=== PATIENT | female | born 1945 | race Caucasian/White ===

== ENCOUNTER → 2018-12-20 | Day surgery (SDC) | payer BC, MEDICARE ==
[~2018-12-20] MED LIST: Buffered Lidocaine 1% SYRIN* 1 ML/SYRINGE INTRADERM ONE; Dexamethasone IV* 4 MG/ML 1 ML (4 MG) IV SLOW PU ONE; Dexamethasone IV* 4 MG/ML 1 ML (4 MG) ONE; DiMENhydriNATE IV* 50 MG/ML VIAL IV PUSH PRN; Famotidine IV* 10 MG/ML 2 ML (20 mg) IV ONE; Famotidine IV* 10 MG/ML 2 ML (20 mg) ONE; Ketorolac INJ* 30 MG/ML 1 ML VIAL ONE; Lactated Ringers 1000 ML Bag* 1,000 ML IV SCH; Lidocaine 2% PF * 5 ML VIAL ONE; Naloxone* 0.4 MG/ML 1 ML VIAL IV PRN; Ondansetron INJ* 2 MG/ML VIAL ONE; Propofol* 10 MG/ML 20 ML BTL ONE; fentaNYL* 50 MCG/ML 2 ML VIAL (100 MCG VIAL) IV PRN; fentaNYL* 50 MCG/ML 2 ML VIAL (100 MCG VIAL) ONE
[2018-12-20 09:37] LABS: ABS Basophils 0.1 10^3/ul (0-0.2); ABS Eosinophils 0.2 10^3/ul (0-0.6); ABS Lymphocytes 1.5 10^3/ul (1.0-4.8); ABS Monocytes 0.5 10^3/ul (0-0.8); ABS Neutrophils 3.9 10^3/ul (1.5-7.7); Eosinophil % 3.9 %; Hematocrit 43 % (35-47); Hemoglobin 14.8 g/dL (12.0-16.0); Lymphocyte % 24.8 %; Mean Corpuscular HGB Conc 34 g/dL (31-36); Mean Corpuscular Hemoglobin 30 pg (27-31); Mean Corpuscular Volume 89 fL (80-97); Mean Platelet Volume 8.1 fL (7.4-10.4); Platelet Count 231 10^3/uL (150-450); Red Blood Count 4.88 10^6 /uL (3.70-4.87); Red Cell Distribution Width 12 % (10-15); White Blood Count 6.2 10^3/uL (3.5-10.8)
[2018-12-20 11:55] VITALS: BP 140/56
--- NOTE | 2018-12-20 15:07 | OP ---
OPERATIVE REPORT: DATE OF OPERATION: 12/20/18 DATE OF : 41 SURGEON: Pamela Ugalde MD SHIRT MAKER: None. ANESTHESIA: General endotracheal. PRE-OP DIAGNOSES: Postmenopausal bleeding, endometrial polyp on ultrasound. POST-OP DIAGNOSES: Postmenopausal bleeding, endometrial polyp on ultrasound. OPERATIVE PROCEDURE: Dilation and curettage, hysteroscopy, polypectomy. ESTIMATED BLOOD LOSS: Minimal. FLUIDS: Crystalloid. FINDINGS: Endometrial polyp on the right lower uterine segment, posterior vagina with strictures and difficulty identifying the cervix and cervical os. COMPLICATIONS: None. COUNTS: All correct. DESCRIPTION OF PROCEDURE: After informed consent was signed, the patient was taken to the operating room where she was given general anesthesia that was found to be adequate. She was prepped and drape d in the dorsal lithotomy position in the [facility]. A time-out was performed. Two speculums w ere then placed into the vagina to expose the posterior vagina. There was difficulty with identifyin g exactly where the cervix was as there were strictures. Eventually, the external os was found and s lowly dilated until the MyoSure camera could be inserted. The camera was inserted and entrance to th e uterine cavity was confirmed. Both ostia were visualized and a polyp was noted in the right lower uterine segment. MyoSure Lite was inserted and used to remove the polyp until it was flush with the endometrium. The MyoSure device was removed and the tenaculum was removed. Minimal bleeding was note d and stopped with pressure. The speculums were then removed. The patient was awakened from anesthe angela, placed back into the supine position, and taken to the recovery room in stable condition. [id number]/[facility] #: [id number]
== END | disposition home or self-care (01) ==
LOC: OR 08:21
PROVIDERS: ATTEND Obstetrics & Gynecology
DX: N95.0 Postmenopausal bleeding (principal); N84.0 Polyp of corpus uteri; K21.9 Gastro-esophageal reflux disease without esophagitis
CPT/HCPCS: 36415; 85025; 86850; 86900; 86901; 88305; J1100; J1885; J2405; J2704; J3010

== ENCOUNTER 2019-01-12 11:49 | Emergency (ER) | payer MEDICARE ==
--- OUTSIDE RECORDS SUMMARY | 2019-01-12 11:56 | XMS REPORT | Continuity of Care Document ---
:1945 External Reference #:[id number] Author Name Pamela Ugalde MD Address [address] [place] [address] Problems Description No Information Available Social History Type Date Description Comments Sex Unknown Tobacco Use Start: Unknown Never Smoked Cigarettes ETOH Use Wine and beer a couple times a week Recreational Drug Use Denies Drug Use Tobacco Use Start: Unknown Patient has never smoked Smoking Status Reviewed: 11/21/18 Patient has never smoked Exercise Type/Frequency Exercises regularly Seat Belt/Car Seat Always uses seat belt Allergies, Adverse Reactions, Alerts Active Allergies Reaction Severity Comments Date Doxycycline 10/23/2018 Medications Active Medications SIG Qnty Indications Ordering Provider Date Calcium + D 1 by mouth every Unknown day [id number] Chewtabs Prilosec OTC 1 by mouth every Unknown 20mg Tablets day DR Chelated Magnesium Unknown 100mg Tablets Vitamin D 1 by mouth every Unknown 1000Unit Tablets day Vitamin B12 Unknown 500mcg Tablets Medications Administered in Office Medication SIG Qnty Indications Ordering Provider Date PT SCRN Tbco Id as Non User Pamela Ugalde MD 11/21/2018 Injection PT SCRN Tbco Id as Non User Pamela Ugalde MD 10/23/2018 Injection Immunizations Description No Information Available Vital Signs Date Vital Result Comment 11/21/2018 9:45am BP Systolic 134 mmHg BP Diastolic 76 mmHg Height 62.50 inches 5'2.50" Weight 157.00 lb BMI (Body Mass Index) 28.3 kg/m2 Last Menstrual Period 7213961 2 Parity 2 10/23/2018 10:55am BP Systolic 140 mmHg BP Diastolic 80 mmHg Weight 158.00 lb Last Menstrual Period [id number] 2 Parity 2 Results Description No Information Available Procedures Date Code Description Status 11/21/2018 57994 Echography Transvaginal Completed 03/19/2014 [id number] Colonoscopy Completed 03/19/2012 [id number] Mammogram Completed Medical Devices Description No Information Available Encounters Type Date Location Provider Dx Diagnosis Office Visit 11/21/2018 [facility] Pamela Ugalde, N95.0 Postmenopausal bleeding 10:00a Office Visit 10/23/2018 [facility] Pamela Ugalde, N39.3 Stress incontinence 11:00a (female) (male) N39.41 Urge incontinence N95.0 Postmenopausal bleeding N81.11 Cystocele, midline Assessments Date Code Description Provider 11/21/2018 N95.0 Postmenopausal bleeding Pamela Ugalde MD 11/21/2018 N95.0 Postmenopausal bleeding Ultrasounds 10/23/2018 N39.3 Stress incontinence (female) (male) Pamela Ugalde MD 10/23/2018 N39.41 Urge incontinence Pamela Ugalde MD 10/23/2018 N95.0 Postmenopausal bleeding Pamela Ugalde MD 10/23/2018 N81.11 Cystocele, midline Pamela Ugalde MD Plan of Treatment 11/21/2018 - Pamela Ugalde MDN95.0 Postmenopausal bleedingComments:We discussed the importance of tissue sampling to confirm benign tissue. Pt agrees to D&C hysteroscopy with polypectomy. Reviewed procedure, recovery and risks. Consents signed and questions answered. Functional Status Description No Information Available Mental Status Description No Information Available Referrals Description No Information Available
--- OUTSIDE RECORDS SUMMARY | 2019-01-12 11:56 | XMS REPORT | Summary of Care ---
:1945 Author Organization [facility] Address [address] [place] [address] Care Team Providers Name Role Phone Chaz Hart MD Primary Care Provider Colin Fernandez MD Unavailable Reason for Visit Reason Comments Other pt presents for pre op clearance. Encounter Details Date Type Department Care Team Description 12/10/2018 Office Visit [facility] [place] Chaz Hart MD Pre-op evaluation (Primary Dx); Practice [address] Endometrial polyp; [address] [place] [address] Neuropathy; [place] [address] B12 deficiency; [phone] Vitamin D deficiency; Need for vaccination Allergies Active Allergy Reactions Severity Noted Date Comments Doxycycline Rash High 02/23/2014 documented as of this encounter (statuses as of 12/10/2018) Medications Medication Sig Dispensed Refills Start Date End Date Status Omeprazole Magnesium Take 20.6 0 Active (PRILOSEC OTC PO) mg by mouth DAILY. Calcium Take 1 Tab 0 Active Carb-Cholecalciferol by mouth (CALCIUM 600/VITAMIN DAILY. D3) 600-800 MG-UNIT Oral Tab Cholecalciferol Take 1 Cap 0 Active (VITAMIN D3) 1000 by mouth UNITS Oral Cap DAILY. Magnesium 250 MG Oral Take by 0 Active Tab mouth DAILY. Cyanocobalamin (B-12) Take by 0 12/10/2018 Discontinued 5000 MCG Oral Cap mouth DAILY. documented as of this encounter (statuses as of 12/10/2018) Active Problems Problem Noted Date Osteoporosis 09/13/2016 History of basal cell carcinoma 09/11/2016 documented as of this encounter (statuses as of 12/10/2018) Immunizations Name Administration Dates Next Due Influenza (IM) Preservative Free 12/19/2013 Influenza Vaccine 65 Yrs + 12/10/2018 Influenza Vaccine High Dose 04/02/2017, 03/29/2016, 02/26/2015 PNEUMOCOCCAL POLYSACCHARIDE VACCINE 03/29/2016 Pneumococcal Conjugate(13 Valent) 02/23/2014 documented as of this encounter Social History Tobacco Use Types Packs/Day Years Used Date Never Smoker Smokeless Tobacco: Never Used Alcohol Use Drinks/Week oz/Week Comments Yes occasional Social Isolation Answer Date Recorded In a typical week, how many times do you More than three times a week 2018 talk on the phone with family, friends, or neighbors? How often do you get together with friends More than three times a week 05/29 or relatives? How often do you attend mu-ism or More than 4 times per year 05/29/2018 holiness services? Do you belong to any clubs or Yes 05/29/2018 organizations such as mu-ism groups, unions, fraternal or athletic groups, or school groups? How often do you attend meetings of the More than 4 times per year 05/29/2018 clubs or organizations you belong to? Are you now , , , 05/29/2018 , never or living with a partner? Physical Activity Answer Date Recorded On average, how many days per week do you engage in moderate to 7 days 2018 strenuous exercise (like walking fast, running, jogging, dancing, swimming, biking, or other activities that cause a light or heavy sweat)? On average, how many minutes do you engage in exercise at this 40 min 2018 level? Stress Answer Date Recorded Do you feel stress - tense, restless, nervous, or anxious, Not at all 2018 or unable to sleep at night because your mind is troubled all the time - these days? Financial Resource Strain Answer Date Recorded How hard is it for you to pay for the very basics like Not hard at all 2018 food, housing, medical care, and heating? Intimate Partner Violence Answer Date Recorded Within the last year, have you been afraid of your partner or No 05/29/2018 ex-partner? Within the last year, have you been humiliated or emotionally No 05/29/2018 abused in other ways by your partner or ex-partner? Within the last year, have you been kicked, hit, slapped, or No 05/29/2018 otherwise physically hurt by your partner or ex-partner? Within the last year, have you been raped or forced to have any No 05/29/2018 kind of sexual activity by your partner or ex-partner? Food Insecurity Answer Date Recorded Within the past 12 months, you worried that your food would Never true 2018 run out before you got money to buy more. Within the past 12 months, the food you bought just didn't Never true 2018 last and you didn't have money to get more. Transportation Needs Answer Date Recorded In the past 12 months, has lack of transportation kept you from No 05/29/2018 medical appointments or from getting medications? In the past 12 months, has lack of transportation kept you from No 05/29/2018 meetings, work, or getting things needed for daily living? Sex Assigned at Date Recorded Not on file Job Start Date Occupation Industry Not on file Not on file Not on file Travel History Travel Start Travel End No recent travel history available. documented as of this encounter Last Filed Vital Signs Vital Sign Reading Time Taken Comments Blood Pressure 118/70 12/10/2018 2:04 PM EDT Pulse 75 12/10/2018 2:04 PM EDT Temperature - - Respiratory Rate - - Oxygen Saturation 97% 12/10/2018 2:04 PM EDT Inhaled Oxygen Concentration - - Weight 71.3 kg (157 lb 3.2 oz) 12/10/2018 2:04 PM EDT Height 160 cm (5' 3") 12/10/2018 2:04 PM EDT Body Mass Index 27.85 12/10/2018 2:04 PM EDT documented in this encounter Progress Notes Chaz Hart MD - 12/10/2018 2:00 PM EDT PATIENT: Keisha Novak : 1945 DATE OF SERVICE: 12/10/2018 Subjective SUBJECTIVE: Keisha Novak is a 73-y.o. female who presents to the office today for a preoperative consultationat the request of Dr Ugalde, who will perform a D and C on 12/20/18. Patient complains of urinary incontinence, uses pessary. Saw MOTION PICTURE PROJECTIONIST APPRENTICE for a check up and ultrasound showed endometrial polyp . She could not do a hysteroscopy in the office due to stenotic os. Plan is todo a D and C to remove the polyp: . Patient denies cardiac symptoms: chest pain, dyspnea, palpitations, near- syncope, fatigue, orthopnea, paroxysmal nocturnal dyspnea, claudication. Past history of pulmonary embolism/deep vein thrombosis: no. There is a history of bleeding complications: no Past history of anesthetic problem: no. Exercise capacity: Can you walk 2 blocks on level ground, or carry 2 bags of groceries up 2 flights of stairs? Yes Count the number of risk factors in the revised Lan cardiac risk index. ( RCRI): 0 High risk procedure: eg vascular surgery, any open intraperitoneal or intrathoracic 0 History of ischemic heart disease (history of ME or a positive exercise test , current complaint of chest pain considered to be secondary to myocardial ischemia, use of nitrate therapy, or ECG with pathological Q waves; do not count prior coronary revascularization procedure unless one of the other criteria for ischemic heart disease is present) 0 Hx of CHF, either systolic or diastolic 0 History of cerebrovascular disease (TIA or Stroke) 0 Diabetes mellitus requiring treatment with insulin 0 Preoperative serum creatinine >2.0 mg/dl The risk of cardiac , nonfatal myocardial infarction, and nonfatal cardiac arrest according to the number of above risk predictors is estimated to be: No risk factors - 0.4 percent (95% CI: 0.1 - 0.8) Screening for sleep apnea: Stop-Bang 1 Snoring: Do you snore loudly (louder than talking or heard through closed doors)? Tired: Do you often feel tired, fatigued, or sleepy during the day? Observed: Has anyone observed you stop breathing during your sleep? Pressure: Do you have or are you being treated for high blood pressure? BMI: >35 kg/m2? 1 Age: >50? Neck circumference: >40 cm? Gender: Male? "Low risk" for KEESHA: <3 questions "yes" Screening for Alzheimer's 1. During the past 12 months, have you experienced confusion or memory loss that is happening more often or is getting worse? No 2. During the past 7 days, did you need help with others to perform everyday activities such as eating, getting dressed, grooming, bathing, walking, or using the toilet? No 3. During the past 7 days, did you need help from others to take care of things such as laundry and housekeeping, banking, shopping, using the telephone, food preparation, transportation, or taking your own medications? No I Past Medical History: Diagnosis Date Basal cell carcinoma BCC (basal cell carcinoma of skin) right jawline Benign familial tremor old records Colon polyp 2014 5 years Diverticulosis 03/04/09 5 years Encounter for Zostavax administration 4..08 Esophageal stricture 2000 s/p dilation Gastric polyp old records and 2014 benign Gastric ulcer not recall if H Pylori ( not in old records) Hemorrhoid Osteopenia old records 11.1.12 2.3 Osteopenia 2014 frax 13 and 3.3 if mom broke hip 21 and 8.0 Osteoporosis 2019 Other and unspecified hyperlipidemia old records [id number] 2013 Retina disorder Vitamin D deficiency old records Family History Problem Relation Age of Onset Osteoporosis Mother had RA Colon Cancer Maternal Grandmother Stroke Maternal Grandfather 80 Cancer Father 85 Prostate CA Alzheimer's Disease Father Respiratory Father COPD Cancer Sister Leukemia No Known Problems Daughter No Known Problems Son Current Outpatient Medications Medication Sig Calcium Carb-Cholecalciferol (CALCIUM 600/VITAMIN D3) 600-800 MG-UNIT Oral Tab Take 1 Tab by mouth DAILY. Cholecalciferol (VITAMIN D3) 1000 UNITS Oral Cap Take 1 Cap by mouth DAILY. Magnesium 250 MG Oral Tab Take by mouth DAILY. Omeprazole Magnesium (PRILOSEC OTC PO) Take 20.6 mg by mouth DAILY. No current facility-administered medications for this visit. 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 Social Needs Financial resource strain: Not hard at all Food insecurity: Worry: Never true Inability: Never true Transportation needs: Medical: No Non-medical: No Tobacco Use Smoking status: Never Smoker Smokeless tobacco: Never Used Substance and Sexual Activity Alcohol use: Yes Comment: occasional Drug use: No Sexual activity: Not Currently Lifestyle Physical activity: Days per week: 7 days Minutes per session: 40 min Stress: Not at all Relationships Social connections: Talks on phone: More than three times a week Gets together: More than three times a week Attends holiness service: More than 4 times per year Active member of club or organization: Yes Attends meetings of clubs or organizations: More than 4 times per year Relationship status: Intimate partner violence: Fear of current or ex partner: No Emotionally abused: No Physically abused: No Forced sexual activity: No Other Topics Concern Back Care Not Asked Bike Helmet Not Asked Blood Transfusions Not Asked Caffeine Concern Not Asked Exercise Not Asked Hobby Hazards Not Asked International Travel Not Asked Service Not Asked Occupational Exposure Not Asked Seat Belt Not Asked Self-Exams Not Asked Sleep Concern Not Asked Special Diet Not Asked Stress Concern Not Asked Weight Concern Not Asked Social History Narrative [place] till 2013 2 adult children, 1 daughter ([place]) 1 son ([place]) Lives in apartment in [facility] REVIEW OF SYSTEMS: CONSTITUTIONAL: Negative . EARS, NOSE, MOUTH, THROAT and FACE: No uri . GASTROINTESTINAL: Swallowing ok. /LYMPHATIC: Edema . legs cramp at night NEUROLOGICAL: Tingling feeling for years . BEHAVIORAL/PSYCH: negative. ENDOCRINE: Gets yearly reclast for osteoporosis . Objective OBJECTIVE: BP 118/70 (BP Location: Right arm, Patient Position: Sitting) | Pulse 75 | Ht 5' 3" (1.6 m) | Wt 157 lb 3.2 oz (71.3 kg) | SpO2 97% | BMI 27.85 kg/m Exam is mostly normal. * no apparent distress, eyes clear, ears normal, oral- moist, no suspicious lesions. Neck supple, without masses. Heart regular without murmur. Lungs clear. Abdomen soft non-tender no masses. Extremity no clubbing cyanosis +1 edema. Neuro -slight tremor, vibratory sense decreased LE Skin no suspicious lesions. Dress and hygiene good Good eye contact Thoughts and speech normal Affect Appropriate Mood normal ASSESSMENT: No contraindications to planned surgery 1. Pre-op evaluation she not really have a lot of medical issues 2. Endometrial polyp I dont have a formal request 3. Neuropathy Numb feet with decreased vibration Check labs 4. B12 deficiency she was on replacement but she read too much was bad so she stopped it 5. Vitamin D deficiency 6. Need for vaccination flu shot 7. Proceed with surgery as planned. No food or liquids the morning of surgery. Call surgeon if develop respiratory illness, fever, or other illness.. Author: Chaz Hart MD 12/10/2018 14:21 documented in this encounter Plan of Treatment Date Type Specialty Care Team Description 06/02/2019 Chronic Care Management Family Practice Name Type Priority Associated Diagnoses Date/Time CBC WITH DIFFERENTIAL Lab Routine B12 deficiency 12/10/2018 3:07 PM EDT VITAMIN B12 / FOLATE Lab Routine B12 deficiency 12/10/2018 3:07 PM EDT VITAMIN D 25 HYDROXY Lab Routine Vitamin D deficiency 12/10/2018 3:07 PM EDT (SINGH) PROTEIN ELECTRO, SERUM Lab Routine Neuropathy 12/10/2018 3:07 PM EDT REFLEX Health Maintenance Due Date Last Done Comments ZOSTER IMMUNIZATION SERIES 08/30/1993 (1 of 2) INFLUENZA VACCINE (#1) 2018 04/02/2017, 03/29/2016, 02/26/2015, Additional history exists DEPRESSION SCREENING 05/30/2019 05/29/2018 FALL RISK ASSESSMENT 05/30/2019 05/29/2018, 05/29/2018 MEDICARE ANNUAL WELLNESS 05/30/2019 05/29/2018, 05/22/2017, VISIT 03/29/2016, Additional history exists COLONOSCOPY SCREENING 06/30/2019 06/29/2014, 03/19/2010 (Previously completed) OSTEOPOROSIS SCREENING 07/02/2020 07/02/2018, 04/08/2015 LIPID DISORDER SCREENING 07/03/2023 07/02/2018, 04/02/2017, 02/26/2014 PNEUMOCOCCAL 65+YRS Completed 03/29/2016, 02/23/2014 HPV IMMUNIZATION SERIES Aged Out No longer eligible based on patient's age to complete this topic MENINGOCOCCAL VACCINE IMM Aged Out No longer eligible based on patient's age to complete this topic documented as of this encounter Results Not on filedocumented in this encounter Visit Diagnoses Diagnosis Pre-op evaluation - Primary Preoperative examination, unspecified Endometrial polyp Polyp of corpus uteri Neuropathy Mononeuritis of unspecified site B12 deficiency Other B-complex deficiencies Vitamin D deficiency Unspecified vitamin D deficiency Need for vaccination Need for prophylactic vaccination and inoculation against unspecified single disease documented in this encounter Insurance Payer Benefit Plan / Subscriber ID Effective Dates Phone Address Type Group [employer] EX[employer] xxxxxxxxxxxx 2015-Present [employer]IC[employer] BLUE PPO [phone]) documented as of this encounter
[2019-01-12 12:10] VITALS: BP 173/79
--- NOTE | 2019-01-12 12:25 | UC ---
Shoulder Pain HPI - HPI Summary HPI Summary: patient fell 2 nights ago injuring left clavivle---has been managing pain with ibu 600 but pain is getting worse over the past 2 days - History of Current Complaint Chief Complaint: UCUpperExtremity Stated Complaint: FELL SHOULDER INJURY Time Seen by Provider: 01/12/19 12:16 Hx Obtained From: Patient ?: No Onset/Duration: Sudden Onset, Lasting Days - 2 Timing: Constant Location Of Pain: Is Discrete @ - left clavicle Pain Intensity: 5 Pain Scale Used: 0-10 Numeric Character: Aching Aggravating Factor(s): Movement Alleviating Factor(s): OTC Meds Associated Signs And Symptoms: Positive: Negative Related History: Dominant Hand Right - Allergies/Home Medications Allergies/Adverse Reactions: Allergies Allergy/AdvReac Type Severity Reaction Status Date / Time doxycycline Allergy Nausea And Verified 01/12/19 12:05 Vomiting PMH/Surg Hx/FS Hx/Imm Hx Previously Healthy: Yes GI/ History: Gastroesophageal Reflux - Surgical History Surgical History: Yes Surgery Procedure, Year, and Place: [facility] - Family History Known Family History: Positive: None - Social History Occupation: Retired Lives: Alone Alcohol Use: Weekly Substance Use Type: None Smoking Status (MU): Never Smoked Tobacco Have You Smoked in the Last Year: No Review of Systems All Other Systems Reviewed And Are Negative: Yes Constitutional: Positive: Negative Skin: Positive: Negative Eyes: Positive: Negative ENT: Positive: Negative Respiratory: Positive: Negative Cardiovascular: Positive: Negative Gastrointestinal: Positive: Negative Genitourinary: Positive: Negative Motor: Positive: Decreased ROM - left shoulder Neurovascular: Positive: Negative Musculoskeletal: Positive: Arthralgia - left clavicle Neurological: Positive: Negative Psychological: Positive: Negative Is Patient Immunocompromised?: No Physical Exam Triage Information Reviewed: Yes Appearance: Well-Appearing, No Pain Distress, Well-Nourished Vital Signs: Initial Vital Signs Temp 96.7 F 01/12/19 12:01 Pulse 95 01/12/19 12:01 Resp 16 01/12/19 12:01 BP 173/79 01/12/19 12:01 Pulse Ox 100 01/12/19 12:01 Vital Signs Reviewed: Yes Eye Exam: Normal Eyes: Positive: Conjunctiva Clear ENT Exam: Normal ENT: Positive: Normal ENT inspection, Hearing grossly normal. Negative: Trismus , Muffled voice, Hoarse voice Neck exam: Other Neck: Positive: Supple, No Lymphadenopathy, Tenderness @ - left side muscles-- no midline tenderness Respiratory Exam: Normal Respiratory: Positive: Chest non-tender, Lungs clear, Normal breath sounds, No respiratory distress, No accessory muscle use Cardiovascular Exam: Normal Cardiovascular: Positive: RRR, No Murmur, Pulses Normal, Brisk Capillary Refill Musculoskeletal Exam: Other Musculoskeletal: Positive: No Edema - or tenting, Strength Limited @ - left arm , ROM Limited @ - left arm Neurological Exam: Normal Neurological: Positive: Alert, Muscle Tone Normal Psychological Exam: Normal Skin Exam: Normal Diagnostics - Radiology No standard instances Radiology Interpretation Completed By: ED Physician, Radiologist - no evidence of fracture Shoulder Course/Dx - Course Course Of Treatment: lidocaine topical for muscle pain, ibuprofen, heat/ice for comfort follow with pcp for recheck and blood pressure management - Differential Dx/Diagnosis Provider Diagnosis: Cervical muscle strain Discharge ED - Sign-Out/Discharge Documenting (check all that apply): Patient Departure All imaging exams completed and their final reports reviewed: Yes - Discharge Plan Condition: Stable Disposition: HOME Patient Education Materials: Ibuprofen (By mouth), Cervical Strain (ED) Referrals: Chaz Hart MD [Primary Care Provider] - 2 Weeks Additional Instructions: Your blood pressure is elevated today, with initial reading of 173/79. Aspercreme 4% Lidocaine patch may be beneficial in pain control - Billing Disposition and Condition Condition: STABLE Disposition: Home
== END 2019-01-12 13:40 | disposition home or self-care (01) ==
LOC: UCEAST 11:49
DX: S16.1XXA Strain of muscle, fascia and tendon at neck level, initial encounter (principal); Z88.1 Allergy status to other antibiotic agents; W19.XXXA Unspecified fall, initial encounter; Y92.9 Unspecified place or not applicable
CPT/HCPCS: 99211; G0463